=== PATIENT | female | born 1965 | race Caucasian/White ===

== ENCOUNTER → 2024-06-10 09:11 | Outpatient (CLI) | payer SELFPAY ==
--- NOTE | 2024-06-10 09:16 | DI.US.S_ITS ---
PROCEDURE: US THYROID INDICATIONS: ELEVATED THYROID ANTIBODIES TECHNIQUE: Real-time scanning was performed of the thyroid gland, with image documentation. COMPARISON: None. FINDINGS: Thyroid: Right lobe measures 5.2 x 1.5 x 1.8 cm. Left lobe measures 4.5 x 1.5 x 1.1 cm. Isthmus is 0.1 cm thick. Echotexture is heterogeneous. No suspicious nodules are nodules greater than 1 cm. IMPRESSION: Bilateral heterogeneous nodules. No suspicious nodules or nodules greater than 1.0 cm. Approved by: Thais Lyn M.D.,Ph.D. on 06/11/2024 at 16:40
== END ==
PROVIDERS: Visit Provider Physician Assistant
DX: E04.2 Nontoxic multinodular goiter (principal)
CPT/HCPCS: 76536